=== PATIENT | female | born 1980 | race Caucasian/White ===

== ENCOUNTER 2017-08-09 12:43 | Emergency (ER) | payer MEDICAID ==
[2017-08-09] MEDS ORDERED: Lidocaine 1% PF 5 ML VIAL ONE ×2 (14:22→15:28)
[2017-08-09] MEDS ORDERED: Bupivacaine 0.5% 10 ML VIAL ONE (14:22)
--- NOTE | 2017-08-09 15:00 | RAD ---
RIGHT THUMB 3 VIEWS: HISTORY: Right thumb injury. FINDINGS: There is a mildly comminuted fracture involving the distal aspect of the proximal phalanx of the thum b. There is an associated transverse fracture involving the distal phalanx at the IP joint of the th umb. This distal phalanx fracture is mildly comminuted as well. IMPRESSION: Comminuted fractures involving the proximal phalanx and the distal phalanx of the thumb at the interp halangeal joint. POS: LUPIS
[2017-08-09] MEDS ORDERED: Adacel (T-DAP) 0.5 ML VIAL ONE (16:03)
[2017-08-09] MEDS ORDERED: Bacitracin Zinc 1 Packet ONE (16:03)
== END 2017-08-09 16:42 | disposition home or self-care (01) ==
LOC: SCSER 12:43
DX: S61.011A Laceration without foreign body of right thumb without damage to nail, initial encounter (principal); W23.0XXA Caught, crushed, jammed, or pinched between moving objects, initial encounter
CPT/HCPCS: 12002; 90715; J2001; J3490